=== PATIENT | male | born 1985 | race Caucasian/White ===

== ENCOUNTER 2019-09-10 07:00 | Outpatient (CLI) | payer OTHER, SELFPAY ==
[2019-09-10 13:51] LABS: Calculated LDL 159 mg/dL; Cholesterol 247 mg/dL (<200); HDL Cholesterol 76 mg/dL (40-60); Triglyceride 62 mg/dL (<150)
[2019-09-10 14:21] LABS: Hemoglobin A1C 5.4 % (3.8-5.6)
== END 2019-09-10 07:20 ==
PROVIDERS: PCP Nurse Practitioner; Visit Provider Nurse Practitioner
DX: Z13.1 Encounter for screening for diabetes mellitus (principal); Z13.6 Encounter for screening for cardiovascular disorders
CPT/HCPCS: 36415; 80061; 83036

== ENCOUNTER 2023-01-13 01:20 | Outpatient (CLI) | payer OTHER, SELFPAY ==
[2023-01-13 12:11] LABS: HCT 50.8 % (40.0-50.0); HGB 16.9 g/dL (13.5-17.5); MCH 29.1 pg (27.0-33.0); MCHC 33.3 % (32.0-36.0); MCV 88 fL (80-95); MPV 12.1 fL (8.0-11.0); Platelet Count 227 10^3/uL (130-400); RDW 12.1 % (11.8-14.1); RDW-SD 38.9 fL
[2023-01-13 12:31] LABS: ALT 47 U/L (16-63); AST 31 U/L (15-37); Albumin 4.6 g/dL (3.4-5.0); Alkaline Phosphatase 70 U/L (46-116); BUN 19 mg/dL (7-18); Bilirubin, Total 0.7 mg/dL (0.2-1.0); CREATININE 1.1 mg/dL (0.70-1.30); Calcium 9.6 mg/dL (8.5-10.1); Calculated LDL 231 mg/dL (<100); Chloride 104 mmol/L (98-107); Cholesterol 318 mg/dL (<200); Estimated GFR 87.57 (mL/min/1.73m2); Glucose 99 mg/dL (74-106); HDL Cholesterol 64 mg/dL (40-60); Potassium 3.9 mmol/L (3.5-5.1); Sodium 142 mmol/L (136-145); Triglyceride 118 mg/dL (<150)
== END 2023-01-13 01:21 | disposition home or self-care (01) ==
LOC: LOS 01:21
PROVIDERS: PCP Nurse Practitioner Family; Visit Provider Nurse Practitioner Family
DX: Z00.00 Encounter for general adult medical examination without abnormal findings (principal)
CPT/HCPCS: 36415; 80053; 80061; 85027

== ENCOUNTER 2024-03-28 02:40 | Outpatient (CLI) | payer OTHER, SELFPAY ==
[2024-03-28 12:23] LABS: Anion Gap 8.9 mmol/L (3-11); BUN 16 mg/dL (7-18); CO2 28.1 mmol/L (21.0-32.0); CREATININE 1.1 mg/dL (0.70-1.30); Calcium 9.3 mg/dL (8.5-10.1); Calculated LDL 201 mg/dL (<100); Chloride 104 mmol/L (98-107); Cholesterol 287 mg/dL (<200); Estimated GFR 87.03 (mL/min/1.73m2); Glucose 97 mg/dL (74-106); HDL Cholesterol 69 mg/dL (40-60); Sodium 141 mmol/L (136-145); Triglyceride 87 mg/dL (<150)
== END 2024-03-28 02:41 | disposition home or self-care (01) ==
LOC: LOS 02:40
PROVIDERS: PCP Nurse Practitioner Family; Visit Provider Nurse Practitioner Family
DX: I10 Essential (primary) hypertension (principal); E78.5 Hyperlipidemia, unspecified; Z00.00 Encounter for general adult medical examination without abnormal findings
CPT/HCPCS: 36415; 80048; 80061

== ENCOUNTER 2025-01-30 09:43 | Outpatient (CLI) | payer OTHER, SELFPAY ==
[2025-01-30 12:49] LABS: ALT 29 U/L (16-63); AST 26 U/L (15-37); Albumin 4.4 g/dL (3.4-5.0); Alkaline Phosphatase 68 U/L (46-116); Anion Gap 4.9 mmol/L (3-11); BUN 18 mg/dL (7-18); Bilirubin, Total 0.6 mg/dL (0.2-1.0); CO2 30.1 mmol/L (21.0-32.0); Calcium 9.6 mg/dL (8.5-10.1); Calculated LDL 201 mg/dL (<100); Chloride 103 mmol/L (98-107); Cholesterol 280 mg/dL (<200); Estimated GFR 96.97 (mL/min/1.73m2); Glucose 98 mg/dL (74-106); HDL Cholesterol 64 mg/dL (>or=40); Potassium 4.5 mmol/L (3.5-5.1); Sodium 138 mmol/L (136-145); Total Protein 7.4 g/dL (6.4-8.2); Triglyceride 79 mg/dL (<150)
== END 2025-01-30 09:44 | disposition home or self-care (01) ==
PROVIDERS: PCP Nurse Practitioner Family; Visit Provider Nurse Practitioner Family
DX: Z00.00 Encounter for general adult medical examination without abnormal findings (principal); I10 Essential (primary) hypertension; E78.5 Hyperlipidemia, unspecified; Z77.011 Contact with and (suspected) exposure to lead
CPT/HCPCS: 36415; 80053; 80061; 83655

== ENCOUNTER 2025-04-13 16:51 | Emergency (ER) | payer OTHER, SELFPAY ==
[2025-04-13 16:52] VITALS: BP 157/80; PULSE 92; TEMP 36.7; O2SAT 98
[2025-04-13 16:54] VITALS: BP 157/80; PULSE 92; TEMP 36.7; O2SAT 98
[2025-04-13 17:30] VITALS: RESP 18
[2025-04-13] MEDS: Cephalexin 500 MG CAP PO (17:38)
[2025-04-13] MEDS: Lidocaine 1% Pres-Free 5 ML VIAL 10 ML IJ (17:38)
[2025-04-13] MEDS: Ibuprofen 600 MG TAB PO (17:38)
--- NOTE | 2025-04-13 18:08 | ED.GENADUL_ITS ---
Discharge Plan Disposition Patient Disposition: Home Condition: Good Discharge Details Clinical Impression: Subungual foreign body of finger Primary Care Provider: Angela Cohn ED Provider: Clare Lord Home Meds and New Rx's Prescriptions: New cephalexin 500 mg capsule 500 mg PO QID 7 Days Qty: 28 0RF Discharge Instructions Additional Instructions: Please keep your ear clean and dry. Wash with antibacterial soap and water. Cover with a bandage. Wear gloves, especially if you are going to be dealing with wood or other objects that may cause damage to your nailbed Your local infection is being treated with cephalexin. Please take the full course as prescribed. You may use ibuprofen 600 mg and/or Tylenol 650 mg every 8 hours as needed for discomfort. Elevate your hand above heart level to help with swelling. Return to care if you develop signs of infection such as fever/chills, increasing redness/swelling/pain, pus drainage, or if you are very worried you need to be rechecked again immediately Referrals: Angela Cohn NP [Primary Care Provider, Medicine] Discharge Data Discharge Date/Time-TO BE ENTERED AT DEPARTURE: 04/13/25 18:20 HPI General Date/Time Provider Initiated Documentation: 04/13/25 17:19 . HPI Narrative: Conner is a 39-year-old male who presents to the emergency department today for evaluation of splinter under his fingernail (L third finger). Injury occurred at work on 04/11/2025, says a piece of wood slipped under his fingernail and he was unable to retrieve it. Able to fully bend and extend his fingers. No other hand injury reported. Reports significant pain when touched or attempting to open hand, and small red dots on the opposite side of the finger. Soaking in baking soda and warm water exacerbated swelling and pain. Concerned about possible infection. No known allergies to novocaine or lidocaine. [place] significant past medical history. Related Data Home Medications ?Medication ?Instructions ?Recorded ?Confirmed cephalexin 500 mg capsule 500 mg PO QID 7 days #28 cap s 04/13/25 Previous Rx's ?Medication ?Instructions ?Recorded cephalexin 500 mg capsule 500 mg PO QID 7 days #28 cap s 04/13/25 Allergies Allergy/AdvReac Type Severity Reaction Status Date / Time hay AdvReac sneezing Uncoded 04/13/25 16:54 General Stated Complaint: GenMedical JUN: 4 Exam Narrative Exam Narrative: General Appearance: Appears well. Vital signs: Within normal limits. Extremities: Able to fully extend and flex left third finger, +tenderness to pal pation Skin: Pain and erythema under nail bed of left third fingernail. Visible 1 cm splinter observed. Psychiatric: Normal. Course Vital Signs Vital signs: Vital Signs Temperature 36.7 C 04/13/25 16:52 Pulse 92 H 04/13/25 16:52 Blood Pressure 157/80 H 04/13/25 16:52 Pulse Oximetry 98 04/13/25 16:52 Temperature 36.7 C 04/13/25 16:54 Pulse 92 H 04/13/25 16:54 Respiratory Rate 18 04/13/25 17:30 Respiratory Effort Normal 04/13/25 17:30 Blood Pressure 157/80 H 04/13/25 16:54 Pulse Oximetry 98 04/13/25 16:54 Medical Decision Making Initial Assessment: 39-year-old male with splinter under left third fingernail, pain, erythema, slight infection. Able to fully extend and flex finger, reports discomfort. History and presentation consistent with retained subungal foreign body and localized infection/inflammation. No red flags concerning for osteomyelitis or underlying fracture/bony abnormality requiring emergent diagnostic imaging ED Course: - Warm water soak. - Digital block performed with 10 cc 1% lidocaine, patient reported good anesthetic effect. - Forceps were used to separate distal aspect of nail from nail bed and a small V shaped partial nail avulsion was performed. Splinter was able to be removed successfully. Patient tolerated procedure well - Patient received first dose of cephalexin for treatment of infection Clinical Impression: - Splinter under fingernail - Infection Disposition: - Discharge home. Splinter removed, read discharge instructions with patient, including wound care, use of antibiotics, and indications for return to emergency care. Cephalexin x 7 days prescribed. Patient is agreeable with plan of care Patient consented to the use of JANIA Quality:SDOH Health Related Social Needs: Health related social needs risk of homeless PFSH All Active Problems (Updated 04/13/25 @ 18:10 by Clare Varma) Subungual foreign body of finger (Acute) Hyperlipemia (Acute) Essential hypertension (Acute) Family History (Updated 09/17/20 @ 15:49 by Parvin Cruz) Mother Adopted Father , age 65 Diabetes Sister Depression Sister No problems noted. Brother No problems noted. Maternal Grandfather , age 91 No problems noted. Paternal Grandfather , age 60 No problems noted. Maternal Grandmother , age 86 No problems noted. Paternal Grandmother , age 85 No problems noted. Social History (Updated 01/31/25 @ 10:07 by Rosy Erwin) Smoking/Tobacco Use Status: Never Second Hand Exposure: Yes Smoking risk assessment performed?: Yes Alcohol Intake: current Alcohol Intake frequency: holidays/special occasions only Alcohol type: beer Details: 1-2 drinks on typical day Drug use: Socially Substance use type: marijuana Adopted: No Caregiver/Support person: No Household members: spouse Housing: house Communication Needs: Corrective Lenses Education Level: college Details: 4years Do you need help understanding health information?: Never current occupation: [employer], Artist, 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 [employer] Pets and animals: Yes Pets and animals: cat(s) Sexually active: Yes Do you think of yourself as: straight/heterosexual Current gender identity: male What is your relationship status?: How often do you talk on the phone with friends or family?: once per week How often do you get together with friends or relatives?: once per week How often do you attend temple or jew services?: decline to answer Do you belong to any clubs or organized social groups?: no Panel score (0-1 are the most socially isolated patients): 1 What type of physical activity do you participate in: none Duration: decline to answer Frequency: decline to answer Kristine/Pentecostal: Restorationism Special kristine needs: No Seatbelt use: always Helmet use: Yes Helmet use: always Drive intox or ride w/intox otr van cdl truck driver: No Firearms in home: No Do you feel safe at home: Yes Do you feel safe in your relationship?: Yes Victim of physical abuse: No Victim of emotional abuse: No Victim of sexual abuse: No Would you like helpful sources: No
== END 2025-04-13 18:20 | disposition home or self-care (01) ==
PROVIDERS: Emergency Provider Nurse Practitioner Family; PCP Nurse Practitioner Family
DX: S60.453A Superficial foreign body of left middle finger, initial encounter (principal); I10 Essential (primary) hypertension; E78.5 Hyperlipidemia, unspecified; X58.XXXA Exposure to other specified factors, initial encounter; Y93.89 Activity, other specified; Y92.69 Other specified industrial and construction area as the place of occurrence of the external cause; Y99.0 Civilian activity done for income or pay
CPT/HCPCS: 11730; 99283; J2003